=== PATIENT | female | born 1985 | race Caucasian/White ===

== ENCOUNTER 2021-03-11 19:54 | Emergency (ER) | payer BC ==
[2021-03-11 20:06] VITALS: BP 147/100; PULSE 83
[2021-03-11] MEDS: Ketorolac 60 MG/2 ML SDV ONE (20:10)
[2021-03-11] MEDS: Ketorolac 60 MG/2 ML SDV IM ONE (20:13)
--- NOTE | 2021-03-11 20:24 | EDM.PDOC ---
ED HPI GENERAL MEDICAL PROBLEM - General Chief Complaint: General Stated Complaint: TOOTHAHE Time Seen by Provider: 03/11/21 20:08 Source of Information: Reports: Patient History Limitations: Reports: No Limitations - History of Present Illness INITIAL COMMENTS - FREE TEXT/NARRATIVE: Nikki, 35-year-old female, presents with exacerbation of dental pain. This is a WSI claim that is in process at this time, currently on antibiotic and pending root canal the 21 March 2021. She has been in contact with dentist over the weekend attempting to develop a plan for earlier processing of this. She denies fever chills or other contributing factors. She stated she had some tramadol that was issued in 2018 that she had taken earlier tonight but experienced no evidence of it working in any fashion. There is no history of renal or other illnesses. Onset: Gradual Duration: Constant, Getting Worse Location: Reports: Face toothache Pain Score (Numeric/FACES): 9 - Related Data Allergies Allergy/AdvReac Type Severity Reaction Status Date / Time No Known Allergies Allergy Verified 03/11/21 20:08 Home Meds: Home Meds Norgestimate-Ethinyl Estradiol [Trinessa Lo Tablet] 1 each PO DAILY 09/03/16 [H istory] Past Medical History HEENT History: Reports: Impaired Vision, Other (See Below) Other HEENT History: Glasses and soft contacts Cardiovascular History: Reports: None. Denies: Afib, Aneurysm, Arrhythmia, Blood Clots/VTE/DVT, CAD, Heart Failure, Heart Murmur, High Cholesterol, Hypertension, PVD, Syncope Respiratory History: Reports: None. Denies: Asthma, Bronchitis, Recurrent, COPD, Intubation, Previous, PE, Pneumonia, Recurrent, Pneumothorax, TB Gastrointestinal History: Reports: None. 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 Denies: Dysfunctional Uterine Bleeding, Endometriosis, Fibroids, , Spontaneous Musculoskeletal History: Reports: None. Denies: Arthritis, Back Pain, Chronic, Fracture, Gout, Neck Pain, Chronic, Osteoarthritis, RA, SLE Neurological History: Reports: None. Denies: Cerebral Aneurysms, Concussion, CVA, Headaches, Chronic, Migraines, Neuropathy, Peripheral, Seizure, TIA Psychiatric History: Reports: None. Denies: Abuse, Victim of, ADD, ADHD, Anxiety, Dementia, Depression, Psych Hospitalization(s), PTSD, Suicide Attempt, Suicidal Ideation Hematologic History: Reports: None. Denies: Anemia, Blood Transfusion(s), Iron Deficiency Immunologic History: Reports: None. Denies: AIDS, HIV, SLE Oncologic (Cancer) History: Reports: None. Denies: Basal Cell Carcinoma, Cervix, Hodgkin's Lymphoma, Leukemia, Lymphoma, Malignant Melanoma, Non- Hodgkin's Lymphoma, Squamous Cell Carcinoma Dermatologic History: Reports: None. Denies: Eczema, Psoriasis - Infectious Disease History Infectious Disease History: Reports: Chicken Pox - Past Surgical History HEENT Surgical History: Reports: Oral Surgery, Other (See Below) GI Surgical History: Reports: Appendectomy, Other (See Below) - Past Imaging History Past Imaging History: Reports: None Social & Family History - Family History Family Medical History: No Pertinent Family History - Caffeine Use Caffeine Use: Reports: Coffee, Energy Drinks, Soda, Tea - Living Situation & Occupation Living situation: Reports: Single, Alone Occupation: Employed ED ROS GENERAL - Review of Systems Review Of Systems: Comprehensive ROS is negative, except as noted in HPI. ED EXAM, GENERAL - Physical Exam Exam: See Below Free Text/Narrative:: Alert, oriented, mild painful distress. HEENT is negative discharge or deformity there is no erythema nor facial swelling noted. Tenderness is noted in the 8 9 region with no significant inflammation of the gingiva. Neck is soft supple with no lymphadenopathy. Thorax is clear no wheezes no crackles are noted. Cardiac is S1-S2 no appreciated murmur. Radial pulse correlates with apical heart rate. There is no integument abnormalities appreciated. Course - Vital Signs Last Recorded V/S: Last Vital Signs Temp 97.3 F 03/11/21 20:00 Pulse 83 03/11/21 20:00 Resp 18 03/11/21 20:00 BP 147/100 H 03/11/21 20:00 Pulse Ox 100 03/11/21 20:00 - Orders/Labs/Meds Meds: Medications Discontinued Medications Generic Name Dose Route Start Last Admin Trade Name Freq PRN Reason Stop Dose Admin Ketorolac Tromethamine Confirm 03/11/21 19:56 03/11/21 20:10 Ketorolac 60 Mg/2 Ml Sdv Administered 03/11/21 19:57 Not Given Dose 60 mg .ROUTE .STK-MED ONE Ketorolac Tromethamine 60 mg 03/11/21 20:09 03/11/21 20:13 Ketorolac 60 Mg/2 Ml Sdv IM 03/11/21 20:10 60 mg ONETIME ONE Administration Departure - Departure Time of Disposition: 20:24 Disposition: Home, Self-Care 01 Condition: Good Clinical Impression: Pain, dental - Discharge Information *PRESCRIPTION DRUG MONITORING PROGRAM REVIEWED*: Yes *COPY OF PRESCRIPTION DRUG MONITORING REPORT IN PATIENT PABLO: Yes Referrals: Tatyana Gutierrez PA-C [Primary Care Provider] - Additional Instructions: You have been given Toradol, 60 mg injection. Do not take anymore tramadol, you may be best to destroy what few pills you have remaining on that old prescription as it did not provide any benefit to you. No ibuprofen until after 8 AM tomorrow morning. Hydrocodone may be used tonight and repeated in 4 to 6 hours. Contact the dentist or medical information officer that would be performing your root canal to see if that can get moved up. Contact your dental office if you need further assessment which may include repeat of dental x-rays, which are unavailable in the majority of the hospitals or clinics. Continue other medications as ordered, Make sure you drink plenty of water to flush the metabolites from your system that develop from the pain medications. Sepsis Event Note (ED) - Evaluation Sepsis Screening Result: No Definite Risk - Focused Exam Vital Signs: Vital Signs Temp Pulse Resp BP Pulse Ox 03/11/21 20:00 97.3 F 83 18 147/100 H 100 - Problem List & Annotations (1) Pain, dental SNOMED Code(s): 32460295 Code(s): K08.89 - OTHER SPECIFIED DISORDERS OF TEETH AND SUPPORTING STRUCTURES Status: Acute Priority: High Current Visit: Yes (2) Encounter related to worker's compensation claim SNOMED Code(s): 714422094 Code(s): Z02.6 - ENCOUNTER FOR EXAMINATION FOR INSURANCE PURPOSES Status: Chronic Priority: Medium Current Visit: Yes - Problem List Review Problem List Initiated/Reviewed/Updated: Yes - Assessment/Plan Plan: You have been given Toradol, 60 mg injection. Do not take anymore tramadol, you may be best to destroy what few pills you have remaining on that old prescription as it did not provide any benefit to you. No ibuprofen until after 8 AM tomorrow morning. Hydrocodone may be used tonight and repeated in 4 to 6 hours. Contact the dentist or medical information officer that would be performing your root canal to see if that can get moved up. Contact your dental office if you need further assessment which may include repeat of dental x-rays, which are unavailable in the majority of the hospitals or clinics. Continue other medications as ordered, Make sure you drink plenty of water to avoid hydration and to flush metabolites from the medications you have been taking from pain prescription and over-the- counter.
[2021-03-11] MEDS: Acetaminophen/HYDROcodone 325-5 MG Tab PO ONE (20:34)
== END 2021-03-11 20:42 | disposition home or self-care (01) ==
LOC: KA.ED 19:54
DX: K08.89 Other specified disorders of teeth and supporting structures (principal)
CPT/HCPCS: 96372; 99282; 99283; A9270-GY; J1885

== ENCOUNTER 2023-12-06 11:05 | Emergency (ER) | payer BC ==
[2023-12-06 11:18] VITALS: BP 127/80; PULSE 107
== END 2023-12-06 12:23 | disposition home or self-care (01) ==
LOC: KA.ED 11:05
DX: M25.562 Pain in left knee (principal); E66.9 Obesity, unspecified; Z79.899 Other long term (current) drug therapy; Z68.30 Body mass index [BMI] 30.0-30.9, adult
CPT/HCPCS: 73560-LT; 73560-RT; 73565; 99283